=== PATIENT | female | born 1980 | race Caucasian/White ===

== ENCOUNTER 2022-09-05 13:46 | Emergency (ER) | payer OTHER ==
[~2022-09-05] VITALS: Ht 167.6 cm; Wt 77.1 kg
[~2022-09-05 13:46] MED LIST: FERR-252 PO; PREN-385 PO
[2022-09-05 14:15] VITALS: BP 151/86; PULSE 104; RESP 20; TEMP 97; O2SAT 98
[2022-09-05 15:46] LABS: BASOPHILS % (AUTO) 0.4 % (0.0-2.0); EOSINOPHILS # (AUTO) 0.1 K/uL (0-0.4); EOSINOPHILS % (AUTO) 1.1 % (0.0-4.0); HEMATOCRIT 22.1 % (36-48); LYMPHOCYTES % (AUTO) 20.7 % (20.5-51.1); MEAN CORPUSCULAR HEMOGLOBIN 20 pg (27-31); MEAN CORPUSCULAR HGB CONC 31 g/dL (33-37); MEAN CORPUSCULAR VOLUME 64.2 fL (80-94); MONOCYTES # (AUTO) 0.7 K/uL (0.8-1.0); MONOCYTES % (AUTO) 7.5 % (1.7-9.3); NEUTROPHILS # (AUTO) 6.9 K/uL (1.8-7.7); NEUTROPHILS % (AUTO) 70.3 % (42.2-75.2); PLATELET COUNT (AUTO) 362 K/uL (140-450); RED BLOOD CELL COUNT(AUTO) 3.43 MIL/uL (4.20-5.40); RED CELL DISTRIBUTION WIDTH 19.4 % (11.6-13.7); WHITE BLOOD COUNT (AUTO) 9.8 K/uL (4.8-10.8)
--- NOTE | 2022-09-05 15:48 | NUR ---
PT AMBULATED TO BED 5
[2022-09-05 16:00] VITALS: O2SAT 98
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
[2022-09-05 16:11] LABS: HEMOGLOBIN 6.8 g/dL (12.0-16.0)
--- NOTE | 2022-09-05 16:25 | NUR ---
BLOOD TRANFUSION CONSENT FORM SIGNED BY PT AND ERMD. FORM IN CHART
[2022-09-05 17:10] LABS: PROTHROMBIN TIME 9.6 secs (10.8-13.4)
[2022-09-05 17:22] LABS: ALBUMIN 3.5 g/dL (3.4-5.0); ANION GAP 11.5 (8-16); CARBON DIOXIDE 26.1 mmol/L (21-32); CREATININE 0.6 mg/dL (0.6-1.3); POTASSIUM 3.6 mmol/L (3.5-5.1); TOTAL BILIRUBIN 0.2 mg/dL (0.0-1.0)
--- NOTE | 2022-09-05 17:48 | NUR ---
per blood bank, blood to be ready : 15min
[2022-09-05 18:08] VITALS: O2SAT 100
--- NOTE | 2022-09-05 19:25 | NUR ---
REPORT GIVEN TO FLETCHER TAMAYO. TRANSFER OF CARE AT THIS TIME
--- NOTE | 2022-09-05 19:25 | NUR ---
pt resting on bed. A/oX4. not in distress. on monitor. with consumed blood transfusion. saline flushing provided. blood transfusion terminated asceptically
[2022-09-05 20:45] VITALS: BP 125/80; PULSE 86; RESP 16; TEMP 98.4; O2SAT 100
--- NOTE | 2022-09-05 20:45 | NUR ---
Patient discharged with v/s stable. Written and verbal after care instructions given and explained. Patient verbalized understanding. Ambulatory with steady gait. All questions addressed prior to discharge. Advised to follow up with PMD.
== END 2022-09-05 20:45 | disposition home or self-care (01) ==
LOC: MED 13:46
DX: N93.9 Abnormal uterine and vaginal bleeding, unspecified (principal); D64.9 Anemia, unspecified; R07.89 Other chest pain; Z88.1 Allergy status to other antibiotic agents; Z79.899 Other long term (current) drug therapy; Z98.890 Other specified postprocedural states
CPT/HCPCS: 36415; 36430; 71045; 80053; 83880; 84484; 85025; 85610; 85730; 86886; 86900; 86901; 86920; 93005; 99285; P9016